=== PATIENT | female | born 1960 | race African-American/Black ===

== ENCOUNTER → 2017-03-18 | Outpatient (CLI) | payer OTHER ==
[2017-03-18 14:01] LABS: Bilirubin, Delta 0.2 mg/dL (0.0-0.2); Total Bilirubin 0.3 mg/dL (0.2-1.3); Total Protein 6.4 g/dL (6.3-8.2)
== END | disposition home or self-care (01) ==
LOC: LABWHC1 12:59
PROVIDERS: ATTEND Psychiatry & Neurology Psychiatry
DX: F33.1 Major depressive disorder, recurrent, moderate (principal); Z79.899 Other long term (current) drug therapy
CPT/HCPCS: 36415; 80061; 80076; 80164; 82947; 83036; 84439; 84443

== ENCOUNTER → 2017-03-31 | Outpatient (CLI) | payer OTHER ==
--- NOTE | 2017-04-01 10:18 | MM ---
Reason for exam: screening (asymptomatic). Physical Findings: A clinical breast exam by your physician is recommended on an annual basis and results should be correlated with mammographic findings. MG Screening Mammo w CAD Bilateral CC and MLO view(s) were taken. The breast tissue is extremely dense which could obscure a lesion on mammography. No suspicious abnormality. ASSESSMENT: Negative, BI-RAD 1 RECOMMENDATION: Routine screening mammogram of both breasts in 1 year.
== END | disposition home or self-care (01) ==
LOC: RADMAMWWP 12:59
PROVIDERS: ATTEND Family Medicine
DX: Z12.31 Encounter for screening mammogram for malignant neoplasm of breast (principal)

== ENCOUNTER 2018-02-22 12:22 | Emergency (ER) | payer OTHER ==
[2018-02-22 12:39] VITALS: BP 122/74; PULSE 74; RESP 18; TEMP 98.2
[2018-02-22] MEDS ORDERED: methylPREDNISolone SOD SUCCI 125 MG/2 ML VIAL IM ONE (12:48)
[2018-02-22] MEDS ORDERED: diphenhydrAMINE 50 MG/ML 1 ML VIAL IM STA (12:48)
[2018-02-22] MEDS ORDERED: PRAMOX-CALAMINE 1-8% LOTION 1 APPLIC/5 ML LOTION TOPICAL STA (12:50)
--- NOTE | 2018-02-22 12:54 | ED ---
Skin/Abscess/FB HPI - General Chief complaint: Skin/Abscess/Foreign Body Stated complaint: Bumps all over body, itching Time Seen by Provider: 02/22/18 12:42 Source: patient Mode of arrival: ambulatory Limitations: no limitations - History of Present Illness Initial comments: 57-year-old female presented from chief complaint of rash. Patient states that it started today states it's. She states that she has bumps all over. Denies anything new addressed anymore new. She states it's of itchy that she had a leave work and came here. She did not take any Benadryl or placed on a topical steroid creams on it. Patient states she has no difficulty swelling underneath the breathing. Patient states that she's never had any like this in the past. - Related Data Previous Rx's Medication Instructions Recorded Famotidine [Pepcid] 20 mg PO DAILY #5 tablet 02/01/16 predniSONE 50 mg PO DAILY #5 tab 02/01/16 diphenhydrAMINE [Benadryl] 50 mg PO QID PRN #20 capsule 02/22/18 predniSONE 50 mg PO DAILY #5 tab 02/22/18 Allergies Allergy/AdvReac Type Severity Reaction Status Date / Time aspirin AdvReac Nausea Verified 02/22/18 12:37 Review of Systems ROS Statement: Those systems with pertinent positive or pertinent negative responses have been documented in the HPI. ROS Other: All systems not noted in ROS Statement are negative. Past Medical History Past Medical History: No Reported History History of Any Multi-Drug Resistant Organisms: None Reported Past Surgical History: Tubal Ligation Past Psychological History: Anxiety, Depression Smoking Status: Current every day smoker Past Alcohol Use History: None Reported Past Drug Use History: None Reported General Exam Limitations: no limitations General appearance: alert, in no apparent distress Head exam: Present: atraumatic, normocephalic, normal inspection Eye exam: Present: normal appearance, PERRL, EOMI. Absent: scleral icterus, conjunctival injection, periorbital swelling ENT exam: Present: normal exam, normal oropharynx, mucous membranes moist Neck exam: Present: normal inspection, full ROM. Absent: tenderness, meningismus, lymphadenopathy Respiratory exam: Present: normal lung sounds bilaterally. Absent: respiratory distress, wheezes, rales, rhonchi, stridor Cardiovascular Exam: Present: regular rate, normal rhythm, normal heart sounds. Absent: systolic murmur, diastolic murmur, rubs, gallop, clicks Skin exam: Present: warm, dry, rash (Diffuse papular rash with urticaria noted on the upper back, low back and abdomen region) Course Vital Signs 02/22/18 12:37 Temperature 98.2 F Pulse Rate 74 Respiratory 18 Rate Blood Pressure 122/74 O2 Sat by Pulse 100 Oximetry Medical Decision Making - Medical Decision Making 57-year-old female has noted urticaria. Patient also has fine papular rash. This appears to be ALLERGIC reaction this time. Patient will be given Benadryl & mental now. Patient we discharged on prednisone and Benadryl. Patient has no respiratory distress patient does not have anaphylactic reaction. Disposition Clinical Impression: Allergic reaction Disposition: HOME SELF-CARE Condition: Stable Instructions: General Allergic Reaction (ED) Additional Instructions: Please return to the Emergency Department if symptoms worsen or any other concerns. Prescriptions: diphenhydrAMINE [Benadryl] 50 mg PO QID PRN #20 capsule PRN Reason: Itching predniSONE 50 mg PO DAILY #5 tab Is patient prescribed a controlled substance at d/c from ED?: No Referrals: Cresencio Leal MD [Primary Care Provider] - 1-2 days Time of Disposition: 12:54
== END 2018-02-22 13:24 | disposition home or self-care (01) ==
LOC: EC 12:22
DX: T78.40XA Allergy, unspecified, initial encounter (principal); F17.200 Nicotine dependence, unspecified, uncomplicated; Z88.6 Allergy status to analgesic agent
CPT/HCPCS: 99283; 96372 ×2; J1200; J2930

== ENCOUNTER 2018-03-30 07:17 | Emergency (ER) | payer OTHER ==
[2018-03-30 08:00] VITALS: RESP 18
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
[2018-03-30] MEDS ORDERED: ACETAMINOPHEN TAB 500 MG TAB PO STA (09:10)
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
[2018-03-30 09:54] VITALS: BP 136/98; PULSE 66; TEMP 98.7
== END 2018-03-30 09:52 | disposition home or self-care (01) ==
LOC: EC 07:17
DX: S29.012A Strain of muscle and tendon of back wall of thorax, initial encounter (principal); M54.2 Cervicalgia; R51 Headache; F17.200 Nicotine dependence, unspecified, uncomplicated; Z88.6 Allergy status to analgesic agent; V49.59XA Passenger injured in collision with other motor vehicles in traffic accident, initial encounter; Y93.89 Activity, other specified; Y92.410 Unspecified street and highway as the place of occurrence of the external cause
CPT/HCPCS: 70450; 71046; 72125; 99284

== ENCOUNTER 2018-04-21 12:08 | Emergency (ER) | payer OTHER ==
[2018-04-21 12:27] VITALS: TEMP 98.6
[2018-04-21] MEDS ORDERED: FAMOTIDINE 20 MG/2 ML VIAL IV STA (13:29)
[2018-04-21] MEDS ORDERED: KETOROLAC 30 MG/ML 1 ML VIAL IVP STA (13:29)
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
[2018-04-21 13:52] LABS: Basophils % (A) 1 %; Eosinophils # (A) 0.2 k/uL (0-0.7); Eosinophils % (A) 7 %; HCT 37.3 % (34.0-46.0); HGB 11.6 gm/dL (11.4-16.0); Hypochromasia Slight; Lymphocytes # (A) 1.4 k/uL (1.0-4.8); Lymphocytes % (A) 40 %; MCH 24.9 pg (25.0-35.0); MCHC 31.2 g/dL (31.0-37.0); MCV 79.9 fL (80.0-100.0); Monocytes # (A) 0.1 k/uL (0-1.0); Monocytes % (A) 3 %; Neutrophils # (A) 1.7 k/uL (1.3-7.7); Neutrophils % (A) 48 %; Platelet Count 230 k/uL (150-450); RBC 4.67 m/uL (3.80-5.40); RDW 15.4 % (11.5-15.5); WBC 3.5 k/uL (3.8-10.6)
[2018-04-21 14:01] LABS: ALT 22 U/L (9-52); AST 20 U/L (14-36); Alkaline Phosphatase 40 U/L (38-126); Amylase 67 U/L (30-110); Anion Gap 4 mmol/L; Blood Urea Nitrogen 11 mg/dL (7-17); Calcium 9.6 mg/dL (8.4-10.2); Carbon Dioxide 29 mmol/L (22-30); Chloride 110 mmol/L (98-107); Glucose 129 mg/dL (74-99); Lipase 67 U/L (23-300); Potassium 4.1 mmol/L (3.5-5.1); Sodium 143 mmol/L (137-145); Total Bilirubin 0.4 mg/dL (0.2-1.3); Total Protein 6.6 g/dL (6.3-8.2)
--- NOTE | 2018-04-21 14:11 | XR ---
EXAMINATION TYPE: XR chest 2V DATE OF EXAM: 04/21/2018 COMPARISON: 03/30/2018 INDICATION: Pain TECHNIQUE: Frontal and lateral views of the chest are obtained. FINDINGS: The heart size is normal. The pulmonary vasculature is normal. The lungs are clear. IMPRESSION: 1. No acute pulmonary process.
--- NOTE | 2018-04-21 14:12 | XR ---
EXAMINATION TYPE: XR thoracic spine complete DATE OF EXAM: 04/21/2018 COMPARISON: None HISTORY: Pain TECHNIQUE: Three-view thoracic spine FINDINGS: There are 12 thoracic-type tubal bodies. Pedicles are intact. Disc heights are preserved. V ertebral body heights appear preserved. Mild kyphosis is present. Note is made of some degenerative c hanges in the lower cervical spine. IMPRESSION: 1. Slight kyphosis within the mid thoracic spine. 2. No acute or subacute changes identified.
[2018-04-21 14:29] VITALS: BP 123/86; PULSE 62; RESP 16
== END 2018-04-21 15:10 | disposition home or self-care (01) ==
LOC: EC 12:08
DX: S29.012A Strain of muscle and tendon of back wall of thorax, initial encounter (principal); K29.70 Gastritis, unspecified, without bleeding; F17.200 Nicotine dependence, unspecified, uncomplicated; Z88.6 Allergy status to analgesic agent; X50.0XXA Overexertion from strenuous movement or load, initial encounter; Y92.69 Other specified industrial and construction area as the place of occurrence of the external cause
CPT/HCPCS: 36415; 80053; 82150; 83690; 85025; 72072; 71046; 99284; 96374; 96375; J1885

== ENCOUNTER → 2020-01-13 | Outpatient (CLI) | payer OTHER ==
--- NOTE | 2020-01-13 10:57 | CT ---
EXAMINATION TYPE: CT sinus wo con DATE OF EXAM: 01/13/2020 COMPARISON: CT brain 03/30/2018 HISTORY: inability to taste or smell x1 year CT DLP: 686.5 mGycm. Automated Exposure Control for Dose Reduction was Utilized. TECHNIQUE: CT scan of the sinuses is performed without contrast, axial images are obtained, coronal r eformatted images are also reviewed. FINDINGS: There is mucosal thickening of the bilateral maxillary sinuses. The right ostiomeatal complex is barton nt. The left ostiomeatal complex is occluded. There is mucosal thickening of the frontal sinuses, ethmoid air cells, and sphenoid sinuses. There ar e foamy secretions within the left sphenoid sinus. The bilateral sphenoid ostia are occluded. The grisel ateral frontoethmoidal recesses are occluded. There is paradoxical curvature of the middle turbinates mid portions bilaterally. There is rightward deviation of the nasal septum. IMPRESSION: Diffuse paranasal sinus disease as above. Foamy mucosal thickening of the left sphenoid sinus may rep resent acute sinusitis.
== END | disposition home or self-care (01) ==
LOC: RADCTMAIN 07:57
PROVIDERS: ATTEND Otolaryngology
DX: J34.89 Other specified disorders of nose and nasal sinuses (principal); J32.9 Chronic sinusitis, unspecified
CPT/HCPCS: 70486

== ENCOUNTER → 2020-06-21 | Outpatient (CLI) | payer OTHER | END | disposition home or self-care (01) | LOC: LABWHC1 11:41 | PROVIDERS: ATTEND Otolaryngology | DX: Z01.818 Encounter for other preprocedural examination (principal); Z20.822 Contact with and (suspected) exposure to COVID-19 | CPT/HCPCS: U0003; C9803 ==

== ENCOUNTER → 2020-11-28 | Outpatient (CLI) | payer BC, OTHER ==
--- NOTE | 2020-11-28 13:49 | CT ---
EXAMINATION TYPE: CT abdomen pelvis w con DATE OF EXAM: 11/28/2020 COMPARISON: 03/10/2017 HISTORY: Periumbilical pain, nausea CT DLP: 364.2 mGycm CONTRAST: CT scan of the abdomen and pelvis is performed with Oral Contrast and with IV Contrast, patient injec maria del rosario with 100 mL of Isovue 300. FINDINGS: LUNG BASES-: No visible nodule. No infiltrate. LIVER/GB: No calcified gallstones. No space occupying hepatic lesion. Biliary tree is of normal ca liber. PANCREAS: No inflammation. No distinct mass. SPLEEN: No splenic enlargement. No lesion seen. ADRENALS: No nodule. No thickening. KIDNEYS/BLADDER: No hydronephrosis. No nephrolithiasis. No distinct renal mass. Urinary bladder g rossly unremarkable. BOWEL: Normal appendix. Normal bowel caliber. No inflammation. GENITAL ORGANS: No gross abnormality. LYMPH NODES: No greater than 1cm abdominal or pelvic lymph nodes are appreciated. AORTA: No significant abnormality. OSSEOUS STRUCTURES: No significant abnormality is seen. OTHER: No significant additional abnormality is seen. IMPRESSION: 1. No significant abnormality to account for the patient's symptoms.
--- NOTE | 2020-11-28 13:57 | US ---
EXAMINATION TYPE: US pelvis complete transvag DATE OF EXAM: 11/28/2020 COMPARISON: CT performed today. CLINICAL HISTORY: R10.11 Rt upper quadrant pain,R10.13,R10.9. TECHNIQUE: Transvaginal (TV) and Transabdominal (TA) . Transabdominal sonographic images of the pel vis were acquired. Transvaginal sonographic images were medically necessary to better assess the fol lowing anatomy: ovaries Date of LMP: post menopausal, no HRT. EXAM MEASUREMENTS: Uterus: 8.3 x 3.4 x 3.9 cm Endometrial Stripe: 0.5 cm Right Ovary: not identified Left Ovary: not identified Patient states history of one ovary removed, unsure which one. 1. Uterus: Retroverted heterogeneous echotexture, echogenic lesion measuring 1.0 x 1.1 x 1.0 cm 2. Endometrium: small amount of fluid within 3. Right Ovary: not identified 4. Left Ovary: not identified 5. Bilateral Adnexa: extensive peristalsing bowel noted 6. Posterior cul-de-sac: no free fluid IMPRESSION: 1. Nonspecific endometrial fluid. 2. Heterogeneous lesion involving the uterus is nonspecific and may represent a leiomyoma, however, o ther etiologies are also possible. Please correlate clinically. 3. Nonvisualization of both ovaries.
== END | disposition home or self-care (01) ==
LOC: RADCTMAIN 10:53
PROVIDERS: ATTEND Family Medicine
DX: R10.33 Periumbilical pain (principal); Z90.721 Acquired absence of ovaries, unilateral
CPT/HCPCS: 76856; 76830; 74177; Q9967

== ENCOUNTER → 2020-12-06 | Outpatient (CLI) | payer BC, OTHER ==
--- NOTE | 2020-12-06 14:23 | FL ---
EXAMINATION TYPE: FL UGI air DATE OF EXAM: 12/06/2020 COMPARISON: None HISTORY: Epigastric tightness and pain with swallowing TECHNIQUE: Double air contrast technique was utilized to evaluate the esophagus and upper GI FINDINGS: Esophagus distends normal caliber and has normal contour to the gastroesophageal junction. Gastroesop hageal junction opens normal caliber. Subtle tertiary contractions may be present within the esophagu s. Some mild presbyesophagus may be present. Fundus body and antrum of the stomach is visualized is normal. Barium readily empties into a normally positioned duodenal cap and sweep. Duodenal fold hypertrophy is present to a mild degree. Distal sec ond portion duodenum may have aphthous ulcers. Correlate for duodenitis. Some mild prominence within the duodenum may be present. On overhead radiographs there is a suggestion of a duodenal ulcer within the mid transverse superior first portion duodenum. Consider H. pylori within the differential. IMPRESSION: 1. Suggestion of small ulcers within the first and second portions of the duodenum. 2. Very mild residue esophagus may be present. 3. Stomach appears within normal limits.
== END | disposition home or self-care (01) ==
LOC: RADFLMAIN 07:55
PROVIDERS: ATTEND Family Medicine
DX: R13.10 Dysphagia, unspecified (principal)
CPT/HCPCS: 74246

== ENCOUNTER 2021-03-02 12:14 | Emergency (ER) | payer BC, OTHER ==
[2021-03-02 12:22] VITALS: RESP 18; TEMP 97.8
[2021-03-02] MEDS ORDERED: oxyCODONE-APAP 10-325MG 1 EACH TAB PO STA (12:58)
--- NOTE | 2021-03-02 13:06 | ED ---
General Adult HPI - General Chief complaint: Extremity Injury, Upper Stated complaint: L finger Lac Time Seen by Provider: 03/02/21 12:30 Source: patient Mode of arrival: ambulatory Limitations: no limitations - History of Present Illness Initial comments: Dictation was produced using [employer] dictation software. please excuse any grammatical, word or spelling errors. Chief Complaint: 60-year-old female presents with finger injury History of Present Illness: She is 60-year-old female she accidentally smashed her finger in between the door. She states that she hurt her second and third digits. She decided not to come to the emergency department or seek medical care yesterday because she thought that her pain would just go away. The ROS documented in this emergency department record has been reviewed and confirmed by me. Those systems with pertinent positive or negative responses have been documented in the HPI. All other systems are other negative and/or noncontributory. PHYSICAL EXAM: General Impression: Alert and oriented x3, not in acute distress HEENT: Normocephalic atraumatic, extra-ocular movements intact, pupils equal and reactive to light bilaterally, mucous membranes moist. Cardiovascular: Heart regular rate and rhythm Chest: Able to complete full sentences, no retractions, no tachypnea Motor: no focal deficits noted Neurological: CN II-XII grossly intact, no focal motor or sensory deficits noted Skin: Intact with no visualized rashes Psych: Normal affect and mood Left hand: There is ecchymoses to the distal tips of the second and third digit. There is an abrasion with mild bleeding coming from underneath the nail of the second digit ED course: 60-year-old male presents to the emergency Department with finger injuries. vital signs upon arrival are within acceptable limits. X-ray shows comminuted subungual tuft fracture of the left third digit. There is a nail injury of digit #2. White male presents to be intact. Patient placed in finger splints dressed appropriately. Patient given updated tetanus. Patient discharged in given follow-up with hand specialist. - Related Data Previous Rx's Medication Instructions Recorded Cyclobenzaprine [Flexeril] 1 - 2 tab PO TID #20 tablet 04/21/18 Omeprazole 20 mg PO DAILY #20 capsule. 04/21/18 HYDROcodone/APAP 5-325MG [Diboll 1 tab PO Q6HR PRN 3 Days #12 tab 03/02/21 5-325] Allergies Allergy/AdvReac Type Severity Reaction Status Date / Time aspirin AdvReac Nausea Verified 03/02/21 12:22 Review of Systems ROS Statement: Those systems with pertinent positive or pertinent negative responses have been documented in the HPI. ROS Other: All systems not noted in ROS Statement are negative. Past Medical History Past Medical History: No Reported History Additional Past Medical History / Comment(s): insomnia History of Any Multi-Drug Resistant Organisms: None Reported Past Surgical History: Section, Tubal Ligation Past Psychological History: Anxiety, Depression Smoking Status: Current every day smoker Past Alcohol Use History: Occasional Past Drug Use History: None Reported General Exam Limitations: no limitations Course Vital Signs 03/02/21 12:20 Temperature 97.8 F Pulse Rate 62 Respiratory 18 Rate Blood Pressure 119/78 O2 Sat by Pulse 100 Oximetry Disposition Clinical Impression: Finger fracture, Nail, injury by Disposition: HOME SELF-CARE Condition: Fair Instructions (If sedation given, give patient instructions): Finger Fracture (ED) Prescriptions: HYDROcodone/APAP 5-325MG [Diboll 5-325] 1 tab PO Q6HR PRN 3 Days #12 tab PRN Reason: Severe Pain Is patient prescribed a controlled substance at d/c from ED?: Yes If prescribed controlled substance>3 days was MAPS reviewed?: Prescribed <3 Days Referrals: Ying Valerio DO [Doctor of Osteopathic Medicine] - 1-2 days
--- NOTE | 2021-03-02 13:27 | XR ---
EXAMINATION TYPE: XR hand complete LT DATE OF EXAM: 03/02/2021 CLINICAL HISTORY: pain TECHNIQUE: Frontal, lateral and oblique images of the left hand are obtained. COMPARISON: None. FINDINGS: Comminuted subungual tuft fracture left third digit. Soft tissue and nail bed injury left s econd digit. No additional fractures seen. IMPRESSION: Comminuted subungual tuft fracture left third digit.
[2021-03-02] MEDS ORDERED: DIPH,PERTUS(ACELL)TETVAC-LF 0.5 ML VIAL IM ONE (13:35)
[2021-03-02 14:24] VITALS: BP 121/77; PULSE 63
== END 2021-03-02 14:08 | disposition home or self-care (01) ==
LOC: EC 12:14
DX: S62.633A Displaced fracture of distal phalanx of left middle finger, initial encounter for closed fracture (principal); F41.9 Anxiety disorder, unspecified; F32.9 Major depressive disorder, single episode, unspecified; F17.200 Nicotine dependence, unspecified, uncomplicated; Z88.6 Allergy status to analgesic agent; Z98.51 Tubal ligation status; W23.0XXA Caught, crushed, jammed, or pinched between moving objects, initial encounter
CPT/HCPCS: 90471; 90715; 99283

== ENCOUNTER 2021-10-23 19:14 | Emergency (ER) | payer BC, OTHER ==
[2021-10-23 20:20] VITALS: BP 123/82; PULSE 103; RESP 20; TEMP 98.4
--- NOTE | 2021-10-23 21:10 | XR ---
EXAMINATION TYPE: XR chest 2V DATE OF EXAM: 10/23/2021 8:37 PM COMPARISON: Chest radiographs from 04/21/2018 TECHNIQUE: XR chest 2V Frontal and lateral views of the chest. CLINICAL INDICATION:Female, 61 years old with history of cough; FINDINGS: Lungs/Pleura: There is no evidence of pleural effusion, focal consolidation, or pneumothorax. Pulmonary vascularity: Unremarkable. Heart/mediastinum: Cardiomediastinal silhouette is unremarkable. Musculoskeletal: No acute osseous pathology. IMPRESSION: No acute cardiopulmonary disease/process.
== END 2021-10-23 21:46 | disposition left against medical advice (07) ==
LOC: EC 19:14
DX: Z53.21 Procedure and treatment not carried out due to patient leaving prior to being seen by health care provider (principal)
CPT/HCPCS: 71046; 87502; 87635; 99499